=== PATIENT | male | born 1960 | race Caucasian/White ===

== ENCOUNTER 2021-04-07 11:59 | Emergency (ER) | payer MEDICARE ==
[~2021-04-07] VITALS: Ht 167.6 cm; Wt 88.0 kg
[~2021-04-07 11:59] MED LIST: ACETAMINOPHEN325 MG PO; CLEOCIN HCL150 MG PO; DIPHENHIST50 MG PO; FENTANYL PA50 MCG/HR TRANSDERM; FLEXERIL; GLUCOPHAGE1000 MG PO; HYDROCODONE-AP1 EAC6 PO; KEFLEX500 MG PO; LEVEMIR SUBQ; LISINOPRIL20 MG PO; MORPHINE; MYCOSTATIN500000 UNI PO; NOVOLOG100 UNIT/1 SUBQ; PERCOCET 5-3251 EACH PO; XANAX 0.5 MG0.5 MG PO; [UNRECOGNIZED DRUG - OTHER]
[2021-04-07 12:24] LABS: ABSOLUTE NEUTROPHILS 4.2 thou/uL (1.4-8.2); BASOPHILS 0.8 % (0.0-2.0); EOSINOPHILS 2.8 % (0.0-3.0); HEMATOCRIT 22.3 % (42.0-52.0); HEMOGLOBIN 7.4 gm/dL (14.0-18.0); LYMPHOCYTES 19.3 % (24.0-44.0); MCH 26.6 pg (26.0-34.0); MCV 80.5 fL (80.0-100.0); MONOCYTES 9.3 % (1.0-8.0); PLATELET COUNT 133 thou/uL (150-400); POLYS 67.8 % (36.0-66.0); RBC 2.77 mil/uL (4.50-6.00); RDW 20.6 % (10.5-14.5); WBC 6.2 thou/uL (4.0-11.0)
[2021-04-07 12:27] LABS: CREATININE 1.2 mg/dL (0.7-1.3); POTASSIUM 4.7 mmol/L (3.5-5.1)
[2021-04-07] MEDS ORDERED: BIOFREEZE118 ML TOP (12:34)
[2021-04-07] MEDS ORDERED: FAMOTIDINE 20 M20 MG PO (12:35)
[2021-04-07] MEDS ORDERED: ESOMEPRAZOLE MA20 MG PO (12:35)
[2021-04-07] MEDS ORDERED: NEURONTIN100 MG PO (12:36)
[2021-04-07] MEDS ORDERED: LEVO-T25 MCG PO (12:36)
[2021-04-07] MEDS ORDERED: LISINOPRIL20 MG PO (12:37)
[2021-04-07] MEDS ORDERED: OMEPRAZOLE 20 M20 M1 PO (12:38)
[2021-04-07] MEDS ORDERED: NOVOLIN 70100 UNIT/1 SUBQ (12:38)
[2021-04-07] MEDS ORDERED: SPIRONOLACTONE100 M1 PO (12:39)
[2021-04-07] MEDS ORDERED: TRAMADOL 50 MG50 MG PO (12:40)
[2021-04-07] MEDS ORDERED: FUROSEMIDE 20 M20 MG PO (13:57)
[2021-04-07] MEDS ORDERED: PERCOCET 5-3251 EACH PO (16:37)
[2021-04-07] MEDS ORDERED: LORAZEPAM 1 MG T1 MG PO (17:49)
[2021-04-07 18:08] VITALS: BP 171/76
[2021-04-07] MEDS ORDERED: ROXICODONE5 M2 PO (18:26)
--- NOTE | 2021-04-09 07:11 | EKG ---
[address] [address] ELECTROCARDIOGRAM REPORT Name: AUGUST VILLASENOR Room #: DEP Xi#: [id number] Admission: 04/07/21 Attend Phys: Discharge: 04/07/21 Date of : 64 Report #: [id number] [facility] ED Test Date: 2021-04-07 Test Time: 15:27:41 Pat Name: AUGUST VILLASENOR Department: Room: Gender: M [employer] Consultant: MIGUEL ANGEL : 1960 Requested By: Jose Fountain Order Number: [id number] MD: Fernie Mack Measurements Intervals [place] Rate: 100 P: 51 UT: 200 QRS: 66 QRSD: 99 T: 46 QT: 379 QTc: 489 Interpretive Statements Sinus tachycardia Borderline prolonged QT interval Compared to ECG 11/26/2014 12:33:07 No significant changes Electronically Signed On 04-09-2021 7:11:15 CDT by Fernie Mack [email or web address] <ELECTRONICALLY SIGNED> By: Fernie Mack MD, [facility] 04/09/21 0711 1527 1527 Fernie Mack MD, FACC /EPI
== END 2021-04-07 18:48 | disposition home or self-care (01) ==
LOC: ER 11:59
PROVIDERS: Emergency Medicine
DX: M79.604 Pain in right leg (principal); E11.9 Type 2 diabetes mellitus without complications; Z79.899 Other long term (current) drug therapy